=== PATIENT | female | born 1940 | race Caucasian/White ===

== ENCOUNTER → 2024-07-24 09:47 | Outpatient (REF) | payer MEDICARE, SELFPAY ==
[2024-07-24 11:32] LABS: % Basophils 0.9 % (0-2); % Eosinophils 3.9 % (0-6); % Immature Granulocytes 0.2 % (0-0.5); % Lymphocytes 38.2 % (20.5-51.1); % Monocytes 12.7 % (1.7-9.3); % Neutrophils 44.1 % (42.2-75.2); Absolute Basophils 0.1 10^3/uL (0-0.2); Absolute Eosinophils 0.2 10^3/uL (0-0.7); Absolute Lymphocytes 2.2 10^3/uL (1.2-3.4); Absolute Monocytes 0.7 10^3/uL (0.1-0.6); Absolute Neutrophils 2.6 10^3/uL (1.4-6.5); Hematocrit 41.4 % (37.0-47.0); Hemoglobin 13.4 g/dL (12.0-16.0); Mean Corp Hgb Conc. 32.4 g/dL (33.0-37.0); Mean Corpuscular Hgb 29.4 pg (27.0-31.0); Mean Corpuscular Volume 90.8 fL (81.0-99.0); Mean Platelet Volume 10.9 fL (7.4-10.4); Nucleated Red Blood Cells % 0 %; Platelet Count 205 10^3/uL (130-400); Red Blood Cell Count 4.56 10^6/uL (4.20-5.40); Red Cell Dist. Width 13.5 % (11.5-14.5); White Blood Cell Count 5.8 10^3/uL (4.8-10.8)
[2024-07-24 12:26] LABS: ALT (SGPT) 18 U/L (0-35); AST (SGOT) 25 U/L (14-36); Albumin 4.3 g/dl (3.5-5.0); Alkaline Phosphatase 47 U/L (38-126); Blood Urea Nitrogen 19 mg/dl (7-17); Calcium 9.6 mg/dl (8.4-10.2); Carbon Dioxide 28 mmol/L (22-30); Chloride 106 mmol/L (98-107); Glucose 89 mg/dl (70-99); HDL Cholesterol 79 mg/dl; LDL Cholesterol, Calculated 120 mg/dl; Potassium 4.2 mmol/L (3.5-5.1); Sodium 140 mmol/L (135-145); Total Bilirubin 1.4 mg/dl (0.2-1.3); Total Cholesterol 211 mg/dl (50-199); Total Protein 6.7 g/dl (6.3-8.2); Triglyceride 61 mg/dl (10-149); Very Low Density Lipoprotein 12 mg/dl (0-30); eGFR > 60.00
[2024-07-24 12:53] LABS: TSH Reflex To Free T4 0.22 uIU/ml (0.47-4.68)
[2024-07-24 13:24] LABS: Free T4 2.18 ng/dl (0.78-2.19)
== END ==
LOC: REG 09:47
PROVIDERS: ATTENDING PHYSICIAN Internal Medicine Geriatric Medicine
DX: E03.9 Hypothyroidism, unspecified (principal); I48.0 Paroxysmal atrial fibrillation
CPT/HCPCS: 36415; 80053; 80061; 84439; 84443; 85025

== ENCOUNTER 2024-08-07 11:28 | Emergency (ER) | payer MEDICARE, SELFPAY ==
[2024-08-07 11:32] VITALS: BP 168/75
[2024-08-07 12:05] LABS: Hematocrit 41.3 % (37.0-47.0); Hemoglobin 13.9 g/dL (12.0-16.0); Mean Corp Hgb Conc. 33.7 g/dL (33.0-37.0); Mean Corpuscular Hgb 29.7 pg (27.0-31.0); Mean Corpuscular Volume 88.2 fL (81.0-99.0); Mean Platelet Volume 10.5 fL (7.4-10.4); Platelet Count 230 10^3/uL (130-400); Red Blood Cell Count 4.68 10^6/uL (4.20-5.40); Red Cell Dist. Width 13.1 % (11.5-14.5)
[2024-08-07 12:13] LABS: ALT (SGPT) 16 U/L (0-35); AST (SGOT) 22 U/L (14-36); Albumin 4.5 g/dl (3.5-5.0); Alkaline Phosphatase 58 U/L (38-126); Blood Urea Nitrogen 14 mg/dl (7-17); Calcium 9.9 mg/dl (8.4-10.2); Carbon Dioxide 27 mmol/L (22-30); Chloride 104 mmol/L (98-107); Glucose 101 mg/dl (70-99); Lipase 78 U/L (23-300); Potassium 4.5 mmol/L (3.5-5.1); Sodium 140 mmol/L (135-145); Total Bilirubin 1.1 mg/dl (0.2-1.3); Total Protein 7.1 g/dl (6.3-8.2); eGFR > 60.00
[2024-08-07 12:26] VITALS: BMI 23.7
--- NOTE | 2024-08-07 12:39 | ED.GENMED ---
History of Present Illness
<Cecilia Starks GANG VIBRATOR OPERATOR - Last Filed: 08/07/24 15:50>
General
Chief Complaint: Abdominal Pain
Source: patient and family
Exam Limitations: none
Time Seen by Provider: 08/07/24 12:25
Nursing documentation reviewed up to this point in time: agreed with
History of Present Illness
History of Present Illness:
84 yo female w h/o diverticulitis, breast CA with R partial mastectomy, presents with abdominal pain
She used to see Dr. Tobias who retired, she saw Dr. Vaughn 5 days ago just to get to know him, routine visit, she told him she does not want to be without an antibiotic at home in case she gets diverticulitis. He prescribed Clindamycin 150 mg TID
as needed. She cannot take Augmentin due to severe GI side effects.
Two days late(3 days ago), developed mid to left abdominal pain so she started the Clindamycin and has had 6 doses with no relief of the pain.
She denies fever, n/v/d/c but states her stools are yellow.
Past History
<Cecilia Starks, GANG VIBRATOR OPERATOR - Last Filed: 08/07/24 15:50>
Past History
ED Past Medical History: Arrthythmia, Hypothyroidism and Other (diverticulosis)
Social History
Tobacco: Non-smoker
Personal:
Living: with family
Review of Systems
<Cecilia Starks, GANG VIBRATOR OPERATOR - Last Filed: 08/07/24 15:50>
Review of Systems
Allergies reviewed?: Yes
All Other Systems: ROS reviewed and negative except as documented in HPI and ROS
Constitutional: Denies fever
Respiratory: Denies trouble breathing
Cardiac: Denies chest pain
ABD/GI: Reports abdominal pain; Denies nausea, vomiting, diarrhea, constipated, bloody stools or black stools
: Denies dysuria, frequency, difficulty voiding or urgency
Musculoskeletal: Reports no symptoms
Skin: Reports no symptoms
Neurological: Reports no symptoms
Phy Exam
<Cecilia Starks, GANG VIBRATOR OPERATOR - Last Filed: 08/07/24 15:50>
Physical Exam
Physical Exam:
GENERAL: No acute distress. A&Ox3.
CONSTITUTIONAL: Afebrile.
EYES: clear, conjunctivae normal
ENMT: moist mucus membranes
RESPIRATORY: Regular respirations, nonlabored, lungs clear.
CARDIOVASCULAR: Regular rate and rhythm, no murmurs, no rubs.
GI: Soft, mild tenderness mid to left abdomen, nondistended, normal BS
MUSCULOSKELETAL: Moves with ease. Well perfused.
SKIN: Warm, dry, pink
PSYCH: Normal mood and affect. Well kept, interactive and appropriate
NEUROLOGIC: Awake, alert and oriented. No focal neurological deficits
Course
<Cecilia Starks, GANG VIBRATOR OPERATOR - Last Filed: 08/07/24 15:50>
Orders/Labs/Results
Orders:
Orders
08/07/24 11:40
Complete Blood Count/With Diff Urgent
Comprehensive Metabolic Panel Urgent
Lipase Urgent
Manual Differential Urgent
08/07/24 12:35
CT Abd/Pel (IV only)-DH only Urgent
Comment:
Reason For Exam: abd pain, hx diverticulitis
08/07/24 12:45
Hydrocortisone Sod Succinate [Solu-Cortef] 200 mg IV NOW STA
08/07/24 12:46
Diphenhydramine [Benadryl] 50 mg IV NOW STA
Abnormal Lab Results
08/07/24
11:40
MPV 10.5 H fL
(7.4-10.4)
Glucose 101 H mg/dl
(70-99)
08/07/24 11:40
08/07/24 11:40
Vital Signs
Initial and Last Documented VS:
Initial Vital Signs
Temp Pulse Resp BP Pulse Ox
97.3 F 63 16 168/75 100
08/07/24 11:32 08/07/24 11:32 08/07/24 11:32 08/07/24 11:32 08/07/24 11:32
Last Documented Vital Signs
Temp Pulse Resp BP Pulse Ox
97.8 F 60 17 168/75 96
08/07/24 14:35 08/07/24 14:35 08/07/24 14:35 08/07/24 11:32 08/07/24 14:35
<Mendel Headley Jr., PA-C - Last Filed: 08/07/24 18:03>
Orders/Labs/Results
Orders:
Orders
08/07/24 11:40
Complete Blood Count/With Diff Urgent
Comprehensive Metabolic Panel Urgent
Lipase Urgent
Manual Differential Urgent
08/07/24 12:35
CT Abd/Pel (IV only)-DH only Urgent
Comment:
Reason For Exam: abd pain, hx diverticulitis
08/07/24 12:45
Hydrocortisone Sod Succinate [Solu-Cortef] 200 mg IV NOW STA
08/07/24 12:46
Diphenhydramine [Benadryl] 50 mg IV NOW STA
Abnormal Lab Results
08/07/24
11:40
MPV 10.5 H fL
(7.4-10.4)
Glucose 101 H mg/dl
(70-99)
08/07/24 11:40
08/07/24 11:40
Vital Signs
Initial and Last Documented VS:
Initial Vital Signs
Temp Pulse Resp BP Pulse Ox
97.3 F 63 16 168/75 100
08/07/24 11:32 08/07/24 11:32 08/07/24 11:32 08/07/24 11:32 08/07/24 11:32
Last Documented Vital Signs
Temp Pulse Resp BP Pulse Ox
97.8 F 60 17 168/75 96
08/07/24 14:35 08/07/24 14:35 08/07/24 14:35 08/07/24 11:32 08/07/24 14:35
<Cecilia Starks GANG VIBRATOR OPERATOR - Last Filed: 08/07/24 15:50>
MDM/Problems Addressed
Differential Diagnosis Includes:
diverticulitis, colitis
MDM/Problems Addressed:
84 yo female w h/o diverticulitis, breast CA with R partial mastectomy, presents with abdominal pain
She used to see Dr. Tobias who retired, she saw Dr. Vaughn 5 days ago just to get to know him, routine visit, she told him she does not want to be without an antibiotic at home in case she gets diverticulitis. He prescribed Clindamycin 150 mg TID
as needed. She cannot take Augmentin due to severe GI side effects.
Two days late(3 days ago), developed mid to left abdominal pain so she started the Clindamycin and has had 6 doses with no relief of the pain.
She denies fever, n/v/d/c but states her stools are yellow.
Pt is pleasant, smiling, NAD
12:30 p.m.
CBC normal
CMP normal
Lipase normal
Pt and family are requesting CT scan
Patient states she had 'a hive' when she got CAT scan contrast in the past. Pre treatment for CT initiated.
3:50 PM: Case discussed with SHARATH Odom who will assume care from this point.
<Mendel Headley Jr., PA-C - Last Filed: 08/07/24 18:03>
*Critical Care Note
Total Time (30-74mins, 75-104mins- exclusive of procedures): Not Applicable
<Mendel Headley Jr., PA-C - Last Filed: 08/07/24 18:03>
Update Note
Update Note:
ES//patient was reassessed and claimed that she feels well at this point. She is found to have mild diverticulitis on CT scan. She will continue her clindamycin otherwise follow-up closely as an outpatient. Return precautions given.
ED Attending Note
<Cecilia Starks NP - Last Filed: 08/07/24 15:50>
-
Portions of this chart may have been created with voice recognition software.� Occasional wrong word or��sound alike� substitutions may have occurred due to the inherent limitations of voice recognition software.
Discharge Plan
Departure
Patient Disposition: Home (Routine Discharge)
Date of Disposition: 08/07/24
Time of Disposition: 18:01
Patient with high blood pressure during this ER visit?: No
Condition: Good
Covid-19: Not Applicable
Discharge Problem:
Diverticulitis
Instructions: Diverticulitis (DC)
Prescriptions:
No Action
levothyroxine 100 MCG tablet
100 mcg PO DAILY
aspirin 81 MG tablet,chewable
81 mg PO DAILY
metoprolol succinate 25 MG tablet extended release 24 hr
25 mg PO QPM
cholecalciferol (vitamin D3) 2,000 UNITS tablet
2,000 unit PO BID
Bone Power
250 mg PO DAILY
Magnesium
300 mg PO DAILY
Referrals:
Josesito Irizarry MD [Family Provider] -
Activity Restrictions/Additional Instructions:
You came to the emergency department today with concerns of abdominal pain. You are found to have a mild diverticulitis on CT scan. Please continue your antibiotics and slowly progress your diet. Return for any worsening, new or concerning
symptoms.
Interventions
Interventions:
*Risk Screen - Suicide Last Done: 08/07/24 13:50
*General Assessment Last Done: 08/07/24 13:48
*Neglect/Abuse Screening Last Done: 08/07/24 13:48
*ED- Fall Risk Assessment Last Done: 08/07/24 13:48
*ED COVID-19 Vaccine History Last Done: 08/07/24 13:48
VZ-Quwagk-[id number] Assessment Last Done: 08/07/24 12:27
Discharge Date and Time
Print Language: LIBYAN
[2024-08-07 12:56] LABS: Absolute Neutrophils -Man Diff 3.7 10^3/uL (1.4-6.5); Anisocytosis 1+; Atypical Lymphocytes 18 %; Band Neutrophils 1 % (0-3); Lymphocytes 20 % (20-51); Metamyelocytes 1 % (-); Monocytes 7 % (2-9); Normal RBC Morphology No; Platelets Checked Yes; Polychromasia 1+; Segmented Neutrophils 53 % (42-75)
[2024-08-07 12:57] LABS: Acanthocytes FEW; Hypochromasia Slight; Ovalocytes 1+; Total Cells Counted 100
[2024-08-07] MEDS: SOLU-CORTEF 200 MG IV (13:16)
[2024-08-07] MEDS: BENADRYL 50 MG IV (13:16)
[2024-08-07 14:27] VITALS: BP 148/73
[2024-08-07 18:00] VITALS: BP 134/76
== END 2024-08-07 18:29 | disposition home or self-care (01) ==
LOC: EMR 11:28
PROVIDERS: Emergency Medicine; EMERGENCY PHYSICIAN Emergency Medicine; FAMILY PHYSICIAN Internal Medicine Geriatric Medicine
DX: K57.32 Diverticulitis of large intestine without perforation or abscess without bleeding (principal); E03.9 Hypothyroidism, unspecified; Z85.3 Personal history of malignant neoplasm of breast
CPT/HCPCS: 99284; 96374; 96375; 74177; 80053; 83690; 85025; Q9967

== ENCOUNTER → 2024-08-31 13:34 | Outpatient (REF) | payer MEDICARE, SELFPAY | LOC: RAD 13:34 | PROVIDERS: ATTENDING PHYSICIAN Internal Medicine Cardiovascular Disease; FAMILY PHYSICIAN Internal Medicine Geriatric Medicine | DX: I48.0 Paroxysmal atrial fibrillation (principal) | CPT/HCPCS: 93971 ==

== ENCOUNTER → 2024-09-19 15:59 | Outpatient (REF) | payer MEDICARE, SELFPAY | LOC: RCS 15:59 | PROVIDERS: ATTENDING PHYSICIAN Internal Medicine Cardiovascular Disease; FAMILY PHYSICIAN Internal Medicine Geriatric Medicine | DX: I48.0 Paroxysmal atrial fibrillation (principal) | CPT/HCPCS: 93306 ==